=== PATIENT | male | born 1980 | race American Indian/Alaskan Native ===

== ENCOUNTER 2017-01-12 16:42 | Emergency (ER) | payer OTHER ==
[2017-01-12 16:56] VITALS: BP 127/94
[2017-01-12] MEDS ORDERED: NACL ONE (17:02)
[2017-01-12 17:19] LABS: Bacteria,Urine 1+ /HPF (Negative); Bilirubin,Urine NEG (Negative); Blood,Urine LG (Negative); Ketones,Urine NEG (Negative); Leukocyte Esterase,Urine SM (Negative); Nitrite,Urine NEG (Negative); Protein,Urine <15 mg/dL mg/dL (Negative); Urobilinogen,Urine < 2.0 mg/dL (<2.0)
[2017-01-12 17:20] LABS: RBC,Urine > 182.0 /HPF (0.0-6.0)
[2017-01-12 17:23] LABS: Eosinophils % (Auto) 5.7 % (0.0-4.3); Hematocrit 49.5 % (35.5-45.6); Hemoglobin 16.9 gm/dl (11.8-15.2); Mean Corpuscular HGB Conc 34 % (32-34); Mean Corpuscular Hemoglobin 28 pg (28-32); Mean Corpuscular Volume 83 fl (84-94); Platelet Count 241 K/mm3 (140-440); Red Blood Count 5.94 M/mm3 (3.65-5.03); Red Cell Distribution Width 14.9 % (13.2-15.2); White Blood Count 6.7 K/mm3 (4.5-11.0)
[2017-01-12 17:46] LABS: BUN/Creatinine Ratio 16; Blood Urea Nitrogen 11 mg/dL (9-20); Calcium 9.9 mg/dL (8.4-10.2); Carbon Dioxide 25 mmol/L (22-30); Glucose 80 mg/dL (75-100)
[2017-01-12 17:51] LABS: Anion Gap 19 mmol/L; Chloride 102.5 mmol/L (98-107); Potassium 4.1 mmol/L (3.6-5.0); Sodium 142 mmol/L (137-145)
--- NOTE | 2017-01-12 18:29 | Emergency Department Report ---
HPI - General Chief Complaint: Urogenital-Male Time Seen by Provider: 01/12/17 16:56 - HPI HPI: 36-year-old male presents to ED with gross hematuria, severe. However had an episode of similar issues in the past due to a ureteral stone. No fever, chills , nausea or vomiting. ED Past Medical Hx - Past Medical History Hx Asthma: Yes - Surgical History Past Surgical History?: No - Social History Smoking Status: Never Smoker Substance Use Type: None ED Review of Systems ROS: Stated complaint: HEMATURIA Other details as noted in HPI Comment: All other systems reviewed and negative Gastrointestinal: as per HPI Genitourinary: hematuria Physical Exam - Physical Exam Vital Signs: Vital Signs 01/12/17 01/12/17 16:52 17:26 Temperature 98.2 F Pulse Rate 82 Respiratory 16 18 Rate Blood Pressure 127/94 O2 Sat by Pulse 98 98 Oximetry Physical Exam: Gen. alert and oriented 3 in no distress Head atraumatic normocephalic Eyes PERR LA EOMI Chest regular rate and rhythm normal S1-S2 lungs clear bilaterally Abdomen soft nondistended, Back no point tenderness paravertebral tenderness Neuro no focal deficit. Psych normal mood. ED Course Vital Signs 01/12/17 01/12/17 16:52 17:26 Temperature 98.2 F Pulse Rate 82 Respiratory 16 18 Rate Blood Pressure 127/94 O2 Sat by Pulse 98 98 Oximetry ED Medical Decision Making - Lab Data Result diagrams: 01/12/17 17:13 01/12/17 17:13 Critical care attestation.: If time is entered above; I have spent that time in minutes in the direct care of this critically ill patient, excluding procedure time. ED Disposition Clinical Impression: Hematuria Qualifiers: Hematuria type: gross Qualified Code(s): R31.0 - Gross hematuria Disposition: DC-01 TO HOME OR SELFCARE Is pt being admited?: No Does the pt Need Aspirin: No Condition: Stable Referrals: PRIMARY CARE, [Primary Care Provider] - 3-5 Days
--- NOTE | 2017-01-12 18:43 | Cat Scan Report ---
FINAL REPORT PROCEDURE: CT ABDOMEN PELVIS WO/W CON TECHNIQUE: Computerized axial tomography of the abdomen and pelvis was performed without contrast followed by computerized axial tomography of the abdomen and pelvis after the IV injection of iodinated nonionic contrast. HISTORY: severe gross hematuria COMPARISON: No prior studies are available for comparison. FINDINGS: Unenhanced images suggest mild cardiomegaly. Spleen is normal in size. No evidence of cholelithiasis or cholecystitis is seen. The adrenal glands and abdominal aorta are normal in size. Small vague hypodensity is seen in the lower pole of the right kidney. No nephrolithiasis or hydronephrosis is seen bilaterally. No ureteral stones or bladder stones are seen. Phleboliths are seen in the pelvis. Contrast-enhanced images reveal a normal spleen, liver, and pancreas. Low-density lesion in the lower pole of the right kidney is a benign cyst measuring approximately 7 millimeters in greatest dimension. The kidneys otherwise enhance normally with normal excretion of contrast. No bladder wall thickening is seen. No free pelvic fluid or pelvic lymphadenopathy is seen. There is a tiny appendicolith in the distal appendix but no evidence of appendicitis is seen. There is no evidence of bowel obstruction. IMPRESSION: Impression 7 millimeter simple cyst is seen in the right kidney but no suspicious no abnormalities are seen. There is likely mild cardiomegaly.
== END 2017-01-12 18:00 | disposition home or self-care (01) ==
LOC: ED 16:42
DX: R31.0 Gross hematuria (principal); J45.909 Unspecified asthma, uncomplicated
CPT/HCPCS: 36415; 74178; 80048; 81001; 85025; 99284; Q9967